=== PATIENT | female | born 1965 | race Caucasian/White ===

== ENCOUNTER 2018-06-01 10:27 | Emergency (ER) | payer BC ==
[2018-06-01 10:47] VITALS: BP 129/87
--- NOTE | 2018-06-01 11:43 | ED ---
Upper Extremity Pain - HPI Summary HPI Summary: 52F presents with left wrist pain today. She states that she was working out and she tripped and landed on her left wrist and knee. She is able to ambulate. has an abrasion to knee. has previous knee replacement. has limited ROM of left wrist. is right handed. no previous fracture to the area. no numbness or tingling. no other injury. did not hit head and no LOC. <Maria Victoria Rob - Last Filed: 06/01/18 12:27> <Josh Chapa - Last Filed: 06/02/18 07:06> - History of Current Complaint Chief Complaint: UCUpperExtremity Stated Complaint: LEFT ARM INJURY Time Seen by Provider: 06/01/18 11:07 - Allergies/Home Medications Allergies/Adverse Reactions: Allergies Allergy/AdvReac Type Severity Reaction Status Date / Time Sulfa (Sulfonamide Allergy full body Verified 06/01/18 10:47 Antibiotics) hives PMH/Surg Hx/FS Hx/Imm Hx Endocrine/Hematology History: Reports: Hx Thyroid Disease - HYPOTHYROIDISM Denies: Hx Diabetes Cardiovascular History: Denies: Hx Hypertension, Hx Pacemaker/ICD History: Denies: Hx Renal Disease Musculoskeletal History: Reports: Hx Arthritis - ARTHRITIS LEFT KNEE Sensory History: Reports: Hx Cataracts - RIGHT EYE Denies: Hx Contacts or Glasses - 1 CONTACT IN RIGHT EYE, WILL NOT WEAR DAY OF SURGERY, Hx Hearing Aid Opthamlomology History: Reports: Hx Cataracts - RIGHT EYE Denies: Hx Contacts or Glasses - 1 CONTACT IN RIGHT EYE, WILL NOT WEAR DAY OF SURGERY Psychiatric History: Denies: Hx Panic Disorder - Cancer History Cancer Type, Location and Year: LEFT BREAST Hx Chemotherapy: No Hx Radiation Therapy: No - Surgical History Surgery Procedure, Year, and Place: 12/2011 [facility] 2010 TIBIAL [place], [facility] [place]. 1996 OOPHORECTOMY (UNSURE WHICH SIDE), [facility] [place] MASTECTOMY LEFT BREAST 09/13. LEFT TORN MENISCUS REPAIR 2013 Hx Anesthesia Reactions: No Infectious Disease History: No Infectious Disease History: Denies: Traveled Outside the [place] in Last 30 Days - Family History Known Family History: Positive: Diabetes - Social History Alcohol Use: Occasionally Substance Use Type: Reports: None Smoking Status (MU): Never Smoked Tobacco <Maria Victoria Rob - Last Filed: 06/01/18 12:27> Review of Systems Negative: Fever Negative: Chest Pain Negative: Shortness Of Breath Positive: Myalgia - left wrist pain All Other Systems Reviewed And Are Negative: Yes <Maria Victoria Rob - Last Filed: 06/01/18 12:27> Physical Exam Triage Information Reviewed: Yes Vital Signs On Initial Exam: Initial Vitals Temp Pulse Resp BP Pulse Ox 98 F 63 16 129/87 100 06/01/18 10:44 06/01/18 10:44 06/01/18 10:44 06/01/18 10:44 06/01/18 10:44 Vital Signs Reviewed: Yes Appearance: Positive: Well-Appearing Skin: Positive: Warm, Dry Head/Face: Positive: Normal Head/Face Inspection Eyes: Positive: Normal, Conjunctiva Clear ENT: Positive: Pharynx normal Respiratory/Lung Sounds: Positive: Clear to Auscultation, Breath Sounds Present Cardiovascular: Positive: Normal, RRR Musculoskeletal: Positive: Limited @ - left wrist, Edema Left - wrist, Other - good pulses, capillary refill<2 secs, abrasion to left knee Neurological: Positive: Normal, Normal Gait Psychiatric: Positive: Normal <Maria Victoria Rob - Last Filed: 06/01/18 12:27> Vital Signs On Initial Exam: Initial Vitals Temp Pulse Resp BP Pulse Ox 98 F 63 16 129/87 100 06/01/18 10:44 06/01/18 10:44 06/01/18 10:44 06/01/18 10:44 06/01/18 10:44 <Josh Chapa - Last Filed: 06/02/18 07:06> Procedures - Splinting left wrist Hand-Made Type: orthoglass Splint: sugar-tong Pre-Proc Neuro Vasc Exam: normal Post-Proc Neuro Vasc Exam: normal <Bessie Robbeth - Last Filed: 06/01/18 12:27> Diagnostics - Vital Signs Vital Signs Temp Pulse Resp BP Pulse Ox 06/01/18 10:44 98 F 63 16 129/87 100 - Radiology wrist Xray Interpretation: Positive (See Comments) - COMMINUTED NONDISPLACED FRACTURE OF THE DISTAL RADIAL METAPHYSIS WITH ARTICULAR EXTENSION. Radiology Interpretation Completed By: Radiologist <Bessie Robbeth - Last Filed: 06/01/18 12:27> - Vital Signs Vital Signs Temp Pulse Resp BP Pulse Ox 06/01/18 10:44 98 F 63 16 129/87 100 <Josh Chapa - Last Filed: 06/02/18 07:06> Course/Dx - Course Course Of Treatment: 52F presents with left wrist pain today. She states that she was working out and she tripped and landed on her left wrist and knee. She is able to ambulate. has an abrasion to knee. has previous knee replacement. has limited ROM of left wrist. is right handed. no previous fracture to the area. no numbness or tingling. no other injury. did not hit head and no LOC. on exam tenderness left wrist. neg snuff box tenderness. neurovascular intact. nontender over patella or fibula head knee and able to ambulate so according to [place] rules does not need imaging knee. wrist xray shows radius fracture. place in [facility]. will have follow up with ortho. patient understand and agrees with plan. - Diagnoses Differential Diagnosis/HQI/PQRI: Positive: Fracture (Closed), Strain, Sprain <DarronMaria Victoria - Last Filed: 06/01/18 12:27> <Josh Chapa - Last Filed: 06/02/18 07:06> - Diagnoses Provider Diagnoses: Right radial fracture Discharge - Sign-Out/Discharge Documenting (check all that apply): Discharge/Admit/Transfer - Billing Disposition and Condition Condition: GOOD Disposition: Home <Maria Victoria Rob - Last Filed: 06/01/18 12:27> - Billing Disposition and Condition Condition: GOOD Disposition: Home <Josh Chapa - Last Filed: 06/02/18 07:06> - Discharge Plan Condition: Good Disposition: HOME Prescriptions: Acetaminop/Codeine 30 MG TAB* [Tylenol/Codeine 30 MG TAB*] 1 tab PO Q6H PRN #20 tab MDD 4 PRN Reason: Pain Patient Education Materials: Wrist Fracture in Adults (ED) Referrals: Kurt Salazar MD [Primary Care Provider] - Perfecto Ortiz MD [Medical Doctor] - Additional Instructions: Keep elbow in sling as needed Keep splint on area and keep dry Call ortho office to set up appointment for follow up Use ibuprofen for pain every 6 hours and use narcotic for breakthrough pain every 6 hours Ice, elevate Return to ED if develop any new or worsening symptoms Per institutional requirements, I have reviewed the chart, however, I was not consulted specifically or made aware of this patient by the above midlevel provider. I did not personally evaluate, interact with , or disposition this patient.
--- NOTE | 2018-06-01 12:14 | RAD ---
HISTORY: left forearm pain, left wrist pain COMPARISONS: None VIEWS: 5, Frontal, lateral, and oblique views of the left wrist with frontal and lateral views of the left forearm FINDINGS: BONE DENSITY: Normal. BONES: There is a comminuted nondisplaced fracture of the distal radial metaphysis with articular extension. JOINTS: There is no arthropathy. ALIGNMENT: There is no dislocation. SOFT TISSUES: Unremarkable. OTHER FINDINGS: None. IMPRESSION: COMMINUTED NONDISPLACED FRACTURE OF THE DISTAL RADIAL METAPHYSIS WITH ARTICULAR EXTENSION.
== END 2018-06-01 12:35 | disposition home or self-care (01) ==
LOC: UCEAST 10:27
DX: S52.92XA Unspecified fracture of left forearm, initial encounter for closed fracture (principal); S80.212A Abrasion, left knee, initial encounter; W18.40XA Slipping, tripping and stumbling without falling, unspecified, initial encounter; Y93.89 Activity, other specified; Y92.9 Unspecified place or not applicable
CPT/HCPCS: 99213; G0463